=== PATIENT | male | born 1970 | race Caucasian/White ===

== ENCOUNTER 2016-07-09 07:44 | Outpatient (CLI) | payer OTHER | END 2016-07-09 07:45 | disposition home or self-care (01) | DX: I63.9 Cerebral infarction, unspecified (principal); I10 Essential (primary) hypertension; I48.91 Unspecified atrial fibrillation; I34.8 Other nonrheumatic mitral valve disorders ==

== ENCOUNTER 2016-07-11 07:37 | Outpatient (CLI) | payer OTHER | END 2016-07-11 07:38 | disposition home or self-care (01) | DX: T14.90 Injury, unspecified (principal); I10 Essential (primary) hypertension; E78.5 Hyperlipidemia, unspecified; Z12.5 Encounter for screening for malignant neoplasm of prostate ==

== ENCOUNTER 2016-08-13 12:57 | Outpatient (CLI) | payer OTHER | END 2016-08-13 12:58 | disposition home or self-care (01) | DX: I63.9 Cerebral infarction, unspecified (principal); I10 Essential (primary) hypertension; I48.91 Unspecified atrial fibrillation; I34.8 Other nonrheumatic mitral valve disorders ==

== ENCOUNTER 2016-08-15 11:55 | Outpatient (CLI) | payer OTHER | END 2016-08-15 11:56 | disposition home or self-care (01) | DX: I63.9 Cerebral infarction, unspecified (principal); I10 Essential (primary) hypertension; I48.91 Unspecified atrial fibrillation; I34.8 Other nonrheumatic mitral valve disorders ==

== ENCOUNTER 2016-09-02 07:08 | Outpatient (CLI) | payer OTHER | END 2016-09-02 07:09 | disposition home or self-care (01) | DX: I63.9 Cerebral infarction, unspecified (principal); I10 Essential (primary) hypertension; I48.91 Unspecified atrial fibrillation; I34.8 Other nonrheumatic mitral valve disorders ==

== ENCOUNTER 2016-09-22 07:14 | Outpatient (CLI) | payer OTHER | END 2016-09-22 07:15 | disposition home or self-care (01) | DX: I63.9 Cerebral infarction, unspecified (principal); I10 Essential (primary) hypertension; I48.91 Unspecified atrial fibrillation; I34.8 Other nonrheumatic mitral valve disorders ==

== ENCOUNTER 2016-10-31 15:45 | Outpatient (CLI) | payer OTHER | END 2016-10-31 15:46 | disposition home or self-care (01) | DX: I63.9 Cerebral infarction, unspecified (principal); I34.8 Other nonrheumatic mitral valve disorders; I10 Essential (primary) hypertension; I48.91 Unspecified atrial fibrillation ==

== ENCOUNTER 2016-11-20 07:44 | Outpatient (CLI) | payer OTHER | END 2016-11-20 07:45 | disposition home or self-care (01) | DX: I48.91 Unspecified atrial fibrillation (principal); I63.9 Cerebral infarction, unspecified; I10 Essential (primary) hypertension; I34.8 Other nonrheumatic mitral valve disorders ==

== ENCOUNTER 2016-12-19 14:04 | Outpatient (CLI) | payer OTHER | END 2016-12-19 14:05 | disposition home or self-care (01) | LOC: LAB.F 14:04 | PROVIDERS: ATTEND Internal Medicine | DX: I63.9 Cerebral infarction, unspecified (principal); I34.8 Other nonrheumatic mitral valve disorders | CPT/HCPCS: 85610 ==

== ENCOUNTER 2017-02-02 07:11 | Outpatient (CLI) | payer OTHER | END 2017-02-02 07:12 | disposition home or self-care (01) | LOC: LAB.F 07:11 | PROVIDERS: ATTEND Internal Medicine | DX: I63.9 Cerebral infarction, unspecified (principal); I48.91 Unspecified atrial fibrillation; I34.8 Other nonrheumatic mitral valve disorders; I10 Essential (primary) hypertension | CPT/HCPCS: 85610 ==

== ENCOUNTER 2017-02-27 07:54 | Outpatient (CLI) | payer OTHER | END 2017-02-27 07:55 | disposition home or self-care (01) | LOC: LAB.F 07:54 | PROVIDERS: ATTEND Internal Medicine | DX: I63.9 Cerebral infarction, unspecified (principal); I10 Essential (primary) hypertension; I48.91 Unspecified atrial fibrillation; I34.8 Other nonrheumatic mitral valve disorders | CPT/HCPCS: 85610 ==

== ENCOUNTER 2017-03-27 07:41 | Outpatient (CLI) | payer OTHER | END 2017-03-27 07:42 | disposition home or self-care (01) | LOC: LAB.F 07:41 | PROVIDERS: ATTEND Internal Medicine | DX: I63.9 Cerebral infarction, unspecified (principal); I10 Essential (primary) hypertension; I48.91 Unspecified atrial fibrillation; I34.8 Other nonrheumatic mitral valve disorders | CPT/HCPCS: 85610 ==

== ENCOUNTER 2017-05-05 07:26 | Outpatient (CLI) | payer OTHER | END 2017-05-05 07:27 | disposition home or self-care (01) | LOC: LAB.F 07:26 | PROVIDERS: ATTEND Internal Medicine | DX: I63.9 Cerebral infarction, unspecified (principal); I10 Essential (primary) hypertension; I48.91 Unspecified atrial fibrillation; I34.8 Other nonrheumatic mitral valve disorders | CPT/HCPCS: 85610 ==

== ENCOUNTER 2017-06-15 07:31 | Outpatient (CLI) | payer OTHER | END 2017-06-15 07:32 | disposition home or self-care (01) | LOC: LAB.F 07:31 | PROVIDERS: ATTEND Internal Medicine | DX: I63.9 Cerebral infarction, unspecified (principal); I10 Essential (primary) hypertension; I48.91 Unspecified atrial fibrillation; I34.8 Other nonrheumatic mitral valve disorders | CPT/HCPCS: 85610 ==

== ENCOUNTER 2017-07-31 08:00 | Outpatient (CLI) | payer OTHER | END 2017-07-31 08:01 | disposition home or self-care (01) | LOC: LAB.F 08:00 | PROVIDERS: ATTEND Internal Medicine Cardiovascular Disease | DX: I48.91 Unspecified atrial fibrillation (principal); I63.9 Cerebral infarction, unspecified; I10 Essential (primary) hypertension; I34.8 Other nonrheumatic mitral valve disorders | CPT/HCPCS: 85610 ==

== ENCOUNTER 2017-08-03 09:19 | Outpatient (CLI) | payer OTHER | END 2017-08-03 09:20 | disposition home or self-care (01) | LOC: LAB.F 09:19 | PROVIDERS: ATTEND Internal Medicine Cardiovascular Disease | DX: I63.9 Cerebral infarction, unspecified (principal); I10 Essential (primary) hypertension; I48.91 Unspecified atrial fibrillation; I34.8 Other nonrheumatic mitral valve disorders | CPT/HCPCS: 85610 ==

== ENCOUNTER 2017-08-07 08:31 | Outpatient (CLI) | payer OTHER | END 2017-08-07 08:32 | disposition home or self-care (01) | LOC: LAB.F 08:31 | PROVIDERS: ATTEND Internal Medicine Cardiovascular Disease | DX: I63.9 Cerebral infarction, unspecified (principal); I10 Essential (primary) hypertension; I48.91 Unspecified atrial fibrillation; I34.8 Other nonrheumatic mitral valve disorders | CPT/HCPCS: 85610 ==

== ENCOUNTER 2017-08-11 13:34 | Outpatient (CLI) | payer OTHER | END 2017-08-11 13:35 | disposition home or self-care (01) | LOC: LAB.F 13:34 | PROVIDERS: ATTEND Internal Medicine Cardiovascular Disease | DX: I10 Essential (primary) hypertension (principal); I48.91 Unspecified atrial fibrillation; I34.8 Other nonrheumatic mitral valve disorders | CPT/HCPCS: 85610 ==

== ENCOUNTER 2017-08-19 07:41 | Outpatient (CLI) | payer OTHER | END 2017-08-19 07:42 | disposition home or self-care (01) | LOC: LAB.F 07:41 | PROVIDERS: ATTEND Internal Medicine Cardiovascular Disease | DX: I63.9 Cerebral infarction, unspecified (principal); I10 Essential (primary) hypertension; I48.91 Unspecified atrial fibrillation; I34.8 Other nonrheumatic mitral valve disorders | CPT/HCPCS: 85610 ==

== ENCOUNTER 2017-09-18 08:07 | Outpatient (CLI) | payer OTHER | END 2017-09-18 08:08 | disposition home or self-care (01) | LOC: LAB.F 08:07 | PROVIDERS: ATTEND Internal Medicine Cardiovascular Disease | DX: I34.8 Other nonrheumatic mitral valve disorders (principal); I63.9 Cerebral infarction, unspecified; I10 Essential (primary) hypertension; I48.91 Unspecified atrial fibrillation | CPT/HCPCS: 85610 ==

== ENCOUNTER 2017-11-13 13:34 | Outpatient (CLI) | payer OTHER | END 2017-11-13 13:35 | disposition home or self-care (01) | LOC: LAB.F 13:34 | PROVIDERS: ATTEND Internal Medicine Cardiovascular Disease | DX: I63.9 Cerebral infarction, unspecified (principal); I10 Essential (primary) hypertension; I48.91 Unspecified atrial fibrillation; I34.8 Other nonrheumatic mitral valve disorders | CPT/HCPCS: 85610 ==

== ENCOUNTER 2017-12-28 16:10 | Outpatient (CLI) | END 2017-12-28 16:11 | disposition home or self-care (01) ==

== ENCOUNTER 2018-03-12 07:49 | Outpatient (CLI) | payer OTHER | END 2018-03-12 07:50 | disposition home or self-care (01) | LOC: LAB.F 07:49 | PROVIDERS: ATTEND Internal Medicine Cardiovascular Disease | DX: I63.9 Cerebral infarction, unspecified (principal); I10 Essential (primary) hypertension; I48.91 Unspecified atrial fibrillation; I34.8 Other nonrheumatic mitral valve disorders | CPT/HCPCS: 85610 ==

== ENCOUNTER 2018-04-26 08:00 | Outpatient (CLI) | payer OTHER | END 2018-04-26 08:01 | disposition home or self-care (01) | LOC: LAB.F 08:00 | PROVIDERS: ATTEND Internal Medicine Cardiovascular Disease | DX: I63.9 Cerebral infarction, unspecified (principal); I10 Essential (primary) hypertension; I48.91 Unspecified atrial fibrillation; I34.8 Other nonrheumatic mitral valve disorders | CPT/HCPCS: 85610 ==

== ENCOUNTER 2018-04-27 07:18 | Outpatient (CLI) | payer OTHER ==
[2018-04-27 10:45] LABS: BASOPHILS # (AUTO) 0.1 10^3/uL (0.0-0.1); EOSINOPHILS # (AUTO) 0.2 10^3/uL (0.0-0.7); EOSINOPHILS % (AUTO) 3.9 %; HGB - HEMOGLOBIN 15.6 g/dL (14.0-18.0); LYMPHOCYTES # (AUTO) 1.4 10^3/uL (1.5-3.5); LYMPHOCYTES % (AUTO) 28.1 %; MEAN CORPUSCULAR HEMOGLOBIN 29.7 pg (27.0-31.0); MEAN CORPUSCULAR HGB CONC 34.3 g/dL (32.0-36.0); MEAN CORPUSCULAR VOLUME 86.7 fL (80.0-94.0); MEAN PLATELET VOLUME 9.5 fL (7.4-11.4); MONOCYTES # (AUTO) 0.6 10^3/uL (0.0-1.0); NEUTROPHILS # (AUTO) 2.8 10^3/uL (1.5-6.6); PLT - PLATELET COUNT 128 10^3/uL (130-450); RED BLOOD COUNT 5.26 10^6/uL (4.70-6.10); RED CELL DISTRIBUTION WIDTH 12.4 % (12.0-15.0); WHITE BLOOD COUNT 5.1 x10^3/uL (4.8-10.8)
[2018-04-27 11:15] LABS: ALBUMIN 4.3 g/dL (3.2-5.5); ALBUMIN/GLOBULIN RATIO 1.4 (1.0-2.2); ALKALINE PHOSPHATASE 33 IU/L (42-121); ALT ALANINE AMINOTRANSFERASE 30 IU/L (10-60); AST ASPARTATE AMINOTRANSFERASE 29 IU/L (10-42); BILIRUBIN,TOTAL 1.6 mg/dL (0.2-1.0); BUN - BLOOD UREA NITROGEN 21 mg/dL (6-20); CALCIUM 9.2 mg/dL (8.5-10.3); CARBON DIOXIDE - CO2 30 mmol/L (21-32); CHLORIDE 101 mmol/L (101-111); CHOL/HDL RATIO 4.2 (<5.0); CHOLESTEROL 198 mg/dL; CREATININE 0.9 mg/dL (0.6-1.2); GFR - MDRD 90 (>89); GLUCOSE 112 mg/dL (70-100); HDL CHOLESTEROL 47 mg/dL; LDL CHOLESTEROL,CALCULATED 121 mg/dL; LDL/HDL RATIO 2.6 (<3.6); SODIUM 135 mmol/L (135-145); TOTAL PROTEIN 7.3 g/dL (6.7-8.2); VLDL CHOLESTEROL 30 mg/dL
== END 2018-04-27 07:19 | disposition home or self-care (01) ==
LOC: LAB.F 07:18
PROVIDERS: ATTEND Registered Nurse
DX: Z00.00 Encounter for general adult medical examination without abnormal findings (principal); I10 Essential (primary) hypertension; E78.5 Hyperlipidemia, unspecified; N20.0 Calculus of kidney; D69.6 Thrombocytopenia, unspecified
CPT/HCPCS: 36415; 80053; 80061; 81001; 83721; 84153; 85025; 87086

== ENCOUNTER 2018-06-23 07:52 | Outpatient (CLI) | payer OTHER | END 2018-06-23 07:53 | disposition home or self-care (01) | LOC: LAB.F 07:52 | PROVIDERS: ATTEND Internal Medicine Cardiovascular Disease | DX: I63.9 Cerebral infarction, unspecified (principal); I10 Essential (primary) hypertension; I48.91 Unspecified atrial fibrillation; I34.8 Other nonrheumatic mitral valve disorders | CPT/HCPCS: 85610 ==

== ENCOUNTER 2018-08-13 07:55 | Outpatient (CLI) | payer OTHER | END 2018-08-13 07:56 | disposition home or self-care (01) | LOC: LAB.F 07:55 | PROVIDERS: ATTEND Internal Medicine Cardiovascular Disease | DX: I63.9 Cerebral infarction, unspecified (principal); I10 Essential (primary) hypertension; I48.91 Unspecified atrial fibrillation; I34.8 Other nonrheumatic mitral valve disorders | CPT/HCPCS: 85610 ==

== ENCOUNTER 2018-09-15 07:53 | Outpatient (CLI) | payer OTHER | END 2018-09-15 07:54 | disposition home or self-care (01) | LOC: LAB.F 07:53 | PROVIDERS: ATTEND Internal Medicine Cardiovascular Disease | DX: I10 Essential (primary) hypertension (principal); I48.91 Unspecified atrial fibrillation; I34.8 Other nonrheumatic mitral valve disorders | CPT/HCPCS: 85610 ==

== ENCOUNTER 2018-11-24 07:31 | Outpatient (CLI) | payer OTHER | END 2018-11-24 07:32 | disposition home or self-care (01) | LOC: LAB.F 07:31 | PROVIDERS: ATTEND Internal Medicine Cardiovascular Disease | DX: I63.9 Cerebral infarction, unspecified (principal); I10 Essential (primary) hypertension; I48.91 Unspecified atrial fibrillation; I34.8 Other nonrheumatic mitral valve disorders | CPT/HCPCS: 85610 ==

== ENCOUNTER 2019-02-04 | Outpatient (CLI) | payer OTHER | END 2019-02-04 15:40 | disposition home or self-care (01) ==

== ENCOUNTER 2019-03-29 08:07 | Outpatient (CLI) | payer OTHER | END 2019-03-29 08:08 | disposition home or self-care (01) | LOC: LAB.S 08:07 | PROVIDERS: ATTEND Internal Medicine Cardiovascular Disease | DX: I63.9 Cerebral infarction, unspecified (principal); I10 Essential (primary) hypertension; I48.91 Unspecified atrial fibrillation; I34.8 Other nonrheumatic mitral valve disorders | CPT/HCPCS: 85610 ==

== ENCOUNTER 2019-05-10 08:52 | Outpatient (CLI) | payer OTHER | END 2019-05-10 08:53 | disposition home or self-care (01) | LOC: LAB.S 08:52 | PROVIDERS: ATTEND Internal Medicine Cardiovascular Disease | DX: I63.9 Cerebral infarction, unspecified (principal); I10 Essential (primary) hypertension; I48.91 Unspecified atrial fibrillation; I34.8 Other nonrheumatic mitral valve disorders | CPT/HCPCS: 85610 ==

== ENCOUNTER 2019-06-30 11:36 | Outpatient (CLI) | payer OTHER | END 2019-06-30 23:59 | disposition home or self-care (01) | LOC: LAB.S 11:36 | PROVIDERS: ATTEND Internal Medicine Cardiovascular Disease | DX: I63.9 Cerebral infarction, unspecified (principal); I10 Essential (primary) hypertension; I48.91 Unspecified atrial fibrillation; I34.8 Other nonrheumatic mitral valve disorders | CPT/HCPCS: 85610 ==

== ENCOUNTER 2019-08-16 08:19 | Outpatient (CLI) | payer OTHER | END 2019-08-16 08:20 | disposition home or self-care (01) | LOC: LAB.S 08:19 | PROVIDERS: ATTEND Internal Medicine Cardiovascular Disease | DX: I63.9 Cerebral infarction, unspecified (principal); I48.91 Unspecified atrial fibrillation; I34.8 Other nonrheumatic mitral valve disorders; I10 Essential (primary) hypertension | CPT/HCPCS: 85610 ==

== ENCOUNTER 2019-10-03 08:32 | Outpatient (CLI) | payer OTHER | END 2019-10-03 08:33 | disposition home or self-care (01) | LOC: LAB.S 08:32 | PROVIDERS: ATTEND Internal Medicine Cardiovascular Disease | DX: I63.9 Cerebral infarction, unspecified (principal); I10 Essential (primary) hypertension; I48.91 Unspecified atrial fibrillation; I34.8 Other nonrheumatic mitral valve disorders | CPT/HCPCS: 85610 ==

== ENCOUNTER 2019-11-24 10:03 | Outpatient (CLI) | payer OTHER | END 2019-11-24 10:04 | disposition home or self-care (01) | LOC: LAB 10:03 | PROVIDERS: ATTEND Internal Medicine Cardiovascular Disease | DX: I63.9 Cerebral infarction, unspecified (principal); I10 Essential (primary) hypertension; I48.91 Unspecified atrial fibrillation; I34.8 Other nonrheumatic mitral valve disorders | CPT/HCPCS: 85610 ==

== ENCOUNTER 2020-02-02 15:39 | Outpatient (CLI) | payer OTHER | END 2020-02-02 15:40 | disposition home or self-care (01) | LOC: LAB.S 15:39 | PROVIDERS: ATTEND Internal Medicine Cardiovascular Disease | DX: I63.9 Cerebral infarction, unspecified (principal); I10 Essential (primary) hypertension; I48.91 Unspecified atrial fibrillation; I34.8 Other nonrheumatic mitral valve disorders | CPT/HCPCS: 85610 ==

== ENCOUNTER 2020-03-22 08:36 | Outpatient (CLI) | payer OTHER | END 2020-03-22 08:37 | disposition home or self-care (01) | LOC: LAB.S 08:36 | PROVIDERS: ATTEND Internal Medicine Cardiovascular Disease | DX: I63.9 Cerebral infarction, unspecified (principal); I10 Essential (primary) hypertension; I48.91 Unspecified atrial fibrillation; I34.8 Other nonrheumatic mitral valve disorders | CPT/HCPCS: 85610 ==

== ENCOUNTER 2020-04-03 11:19 | Outpatient (CLI) | payer OTHER ==
[2020-04-03 14:58] LABS: BASOPHILS # (AUTO) 0.1 10^3/uL (0.0-0.1); BASOPHILS % (AUTO) 1.2 %; EOSINOPHILS # (AUTO) 0.2 10^3/uL (0.0-0.7); EOSINOPHILS % (AUTO) 4.5 %; HGB - HEMOGLOBIN 15.2 g/dL (14.0-18.0); LYMPHOCYTES # (AUTO) 1.3 10^3/uL (1.5-3.5); LYMPHOCYTES % (AUTO) 25.9 %; MEAN CORPUSCULAR HEMOGLOBIN 29.6 pg (27.0-31.0); MEAN CORPUSCULAR HGB CONC 33.5 g/dL (32.0-36.0); MEAN CORPUSCULAR VOLUME 88.3 fL (80.0-94.0); MEAN PLATELET VOLUME 11.2 fL (7.4-11.4); MONOCYTES # (AUTO) 0.4 10^3/uL (0.0-1.0); MONOCYTES % (AUTO) 8.8 %; NEUTROPHILS # (AUTO) 2.9 10^3/uL (1.5-6.6); NEUTROPHILS % (AUTO) 59.2 %; PLT - PLATELET COUNT 153 10^3/uL (130-450); RED BLOOD COUNT 5.14 10^6/uL (4.70-6.10); RED CELL DISTRIBUTION WIDTH 11.9 % (12.0-15.0); WHITE BLOOD COUNT 4.9 x10^3/uL (4.8-10.8)
[2020-04-03 15:31] LABS: PSA FREE 0.121 ng/mL (0.16-2.81); PSA TOTAL 0.476 ng/mL (0.000-2.000)
[2020-04-03 15:34] LABS: ALBUMIN 4.5 g/dL (3.2-5.5); ALBUMIN/GLOBULIN RATIO 1.7 (1.0-2.2); ALKALINE PHOSPHATASE 35 IU/L (42-121); ALT ALANINE AMINOTRANSFERASE 43 IU/L (10-60); AST ASPARTATE AMINOTRANSFERASE 36 IU/L (10-42); BILIRUBIN,TOTAL 1.6 mg/dL (0.2-1.0); BUN - BLOOD UREA NITROGEN 17 mg/dL (6-20); CALCIUM 9.6 mg/dL (8.5-10.3); CARBON DIOXIDE - CO2 26 mmol/L (21-32); CHLORIDE 101 mmol/L (101-111); CHOL/HDL RATIO 4.5 (<5.0); CHOLESTEROL 208 mg/dL; CREATININE 0.9 mg/dL (0.6-1.2); GLUCOSE 109 mg/dL (70-100); HDL CHOLESTEROL 46 mg/dL; LDL CHOLESTEROL,CALCULATED 123 mg/dL; LDL/HDL RATIO 2.7 (<3.6); SODIUM 136 mmol/L (135-145); TOTAL PROTEIN 7.1 g/dL (6.7-8.2); VLDL CHOLESTEROL 39 mg/dL
== END 2020-04-03 11:20 | disposition home or self-care (01) ==
LOC: LAB.S 11:19
PROVIDERS: ATTEND Internal Medicine Cardiovascular Disease
DX: Z00.00 Encounter for general adult medical examination without abnormal findings (principal); I10 Essential (primary) hypertension; E78.5 Hyperlipidemia, unspecified; I63.9 Cerebral infarction, unspecified; I48.91 Unspecified atrial fibrillation; I34.8 Other nonrheumatic mitral valve disorders; I38 Endocarditis, valve unspecified; Z79.01 Long term (current) use of anticoagulants; Z79.899 Other long term (current) drug therapy
CPT/HCPCS: 36415; 80053; 80061; 83721; 84153; 84154; 84443; 85025; 85610

== ENCOUNTER 2020-05-11 08:04 | Outpatient (CLI) | payer OTHER | END 2020-05-11 08:05 | disposition home or self-care (01) | LOC: LAB.S 08:04 | PROVIDERS: ATTEND Internal Medicine Cardiovascular Disease | DX: I63.9 Cerebral infarction, unspecified (principal); I10 Essential (primary) hypertension; I48.91 Unspecified atrial fibrillation; I34.8 Other nonrheumatic mitral valve disorders | CPT/HCPCS: 85610 ==

== ENCOUNTER 2020-05-23 09:07 | Outpatient (CLI) | payer OTHER | END 2020-05-23 09:08 | disposition home or self-care (01) | LOC: LAB.S 09:07 | PROVIDERS: ATTEND Internal Medicine Cardiovascular Disease | DX: I63.9 Cerebral infarction, unspecified (principal); I10 Essential (primary) hypertension; I48.91 Unspecified atrial fibrillation; I34.8 Other nonrheumatic mitral valve disorders | CPT/HCPCS: 85610 ==

== ENCOUNTER 2020-07-13 09:10 | Outpatient (CLI) | payer OTHER ==
--- OUTSIDE RECORDS SUMMARY | 2020-07-18 01:31 | EXTERNAL MEDICAL SUMMARY RPT | Continuity of Care Document ---
:1970 Demographics Phone Unavailable Preferred Language Unknown Marital Status Unknown Zoroastrianism Affiliation Unknown Race Unknown Ethnic Group Unknown Author Organization [facility] Address [address] [phone] Phone Care Team Providers Name Role Phone Kat Unavailable Unavailable Problems date description facility 2020-04-03 11:19 HYPERLIPIDEMIA, UNSPECIFIED [facility] 2020-04-03 11:19 ESSENTIAL (PRIMARY) HYPERTENSION 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 2020-04-03 11:19 ENCNTR FOR GENERAL ADULT MEDICAL 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 2020-05-23 09:07 ESSENTIAL (PRIMARY) HYPERTENSION 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 2.0 - 3.0 Mech anical Valve 2.5 - 3.5 test status date ordered by attending specimen john e null F 2020-05-23 [facility]. Nick Guajardo 2019-07 10:40:00 09:16:00 facility observation status value reference units lab abnor mal line notes range code [facility] F 3.4 0.8-1.2 [facility] Anticoag ulant Indicati on INR rang e Venous Thrombos is, P.E. 2.0 - 3.0 Mech anical Valve 2.5 - 3.5 test status date ordered by attending specimen john e null F 2020-07-13 [id number].[email or web address] Debi Esteban 8 09:20:00 09:20:00 facility observation status value reference units lab abnor mal line notes range code [facility] F 3.3 0.8-1.2 [facility] Anticoag ulant Indicati on INR rang e Venous Thrombos is, P.E. 2.0 - 3.0 Mech anical Valve 2.5 - 3.5 Social History date description facility [id number]
== END 2020-07-13 09:11 | disposition home or self-care (01) ==
LOC: LAB.S 09:10
PROVIDERS: ATTEND Registered Nurse
DX: I63.9 Cerebral infarction, unspecified (principal); I34.8 Other nonrheumatic mitral valve disorders; I10 Essential (primary) hypertension; I48.91 Unspecified atrial fibrillation
CPT/HCPCS: 85610

== ENCOUNTER 2020-08-24 08:31 | Outpatient (CLI) | payer OTHER | END 2020-08-24 08:32 | disposition home or self-care (01) | LOC: LAB.S 08:31 | PROVIDERS: ATTEND Internal Medicine Cardiovascular Disease | DX: I63.9 Cerebral infarction, unspecified (principal); I10 Essential (primary) hypertension; I48.91 Unspecified atrial fibrillation; I34.8 Other nonrheumatic mitral valve disorders | CPT/HCPCS: 85610 ==

== ENCOUNTER 2020-10-16 16:35 | Outpatient (CLI) | payer OTHER | END 2020-10-16 16:36 | disposition home or self-care (01) | LOC: LAB.S 16:35 | PROVIDERS: ATTEND Internal Medicine Cardiovascular Disease | DX: I63.9 Cerebral infarction, unspecified (principal); I10 Essential (primary) hypertension; I48.91 Unspecified atrial fibrillation; I34.8 Other nonrheumatic mitral valve disorders | CPT/HCPCS: 85610 ==

== ENCOUNTER 2020-10-18 15:33 | Outpatient (CLI) | payer OTHER | END 2020-10-18 15:34 | disposition home or self-care (01) | LOC: LAB.S 15:33 | PROVIDERS: ATTEND Internal Medicine Cardiovascular Disease | DX: I63.9 Cerebral infarction, unspecified (principal); I10 Essential (primary) hypertension; I48.91 Unspecified atrial fibrillation; I34.8 Other nonrheumatic mitral valve disorders | CPT/HCPCS: 85610 ==

== ENCOUNTER 2020-10-23 18:16 | Outpatient (CLI) | payer OTHER | END 2020-10-23 18:17 | disposition home or self-care (01) | LOC: LAB.S 18:16 | PROVIDERS: ATTEND Internal Medicine Cardiovascular Disease | DX: Z79.01 Long term (current) use of anticoagulants (principal) | CPT/HCPCS: 85610 ==

== ENCOUNTER 2020-10-29 16:35 | Outpatient (CLI) | payer OTHER | END 2020-10-29 16:36 | disposition home or self-care (01) | LOC: LAB.S 16:35 | PROVIDERS: ATTEND Internal Medicine Cardiovascular Disease | DX: Z79.01 Long term (current) use of anticoagulants (principal) | CPT/HCPCS: 85610 ==

== ENCOUNTER 2020-11-27 07:27 | Outpatient (CLI) | payer OTHER | END 2020-11-27 07:28 | disposition home or self-care (01) | LOC: LAB.S 07:27 | PROVIDERS: ATTEND Internal Medicine Cardiovascular Disease | DX: Z79.01 Long term (current) use of anticoagulants (principal) | CPT/HCPCS: 36416; 85610 ==

== ENCOUNTER 2020-11-30 07:56 | Outpatient (CLI) | payer OTHER | END 2020-11-30 07:57 | disposition home or self-care (01) | LOC: LAB.S 07:56 | PROVIDERS: ATTEND Internal Medicine Cardiovascular Disease | DX: Z79.01 Long term (current) use of anticoagulants (principal) | CPT/HCPCS: 36416; 85610 ==

== ENCOUNTER 2020-12-06 07:47 | Outpatient (CLI) | payer OTHER | END 2020-12-06 07:48 | disposition home or self-care (01) | LOC: LAB.S 07:47 | PROVIDERS: ATTEND Internal Medicine Cardiovascular Disease | DX: Z79.01 Long term (current) use of anticoagulants (principal) | CPT/HCPCS: 36416; 85610 ==

== ENCOUNTER 2021-01-22 07:22 | Outpatient (CLI) | payer OTHER | END 2021-01-22 07:23 | disposition home or self-care (01) | LOC: LAB.S 07:22 | PROVIDERS: ATTEND Internal Medicine Cardiovascular Disease | DX: Z79.01 Long term (current) use of anticoagulants (principal) | CPT/HCPCS: 36416; 85610 ==

== ENCOUNTER 2021-02-12 07:37 | Outpatient (CLI) | payer OTHER | END 2021-02-12 07:38 | disposition home or self-care (01) | LOC: LAB.S 07:37 | PROVIDERS: ATTEND Internal Medicine Cardiovascular Disease | DX: Z79.01 Long term (current) use of anticoagulants (principal) | CPT/HCPCS: 36416; 85610 ==

== ENCOUNTER 2021-03-04 13:07 | Outpatient (CLI) | payer OTHER ==
[2021-03-04 20:08] LABS: ALBUMIN 4.5 g/dL (3.2-5.5); ALBUMIN/GLOBULIN RATIO 1.5 (1.0-2.2); BILIRUBIN,TOTAL 1.3 mg/dL (0.2-1.0); CALCIUM 9.7 mg/dL (8.5-10.3); CREATININE 0.9 mg/dL (0.6-1.2); POTASSIUM 4.1 mmol/L (3.5-5.0); TOTAL PROTEIN 7.5 g/dL (6.7-8.2)
[2021-03-04 20:14] LABS: BASOPHILS # (AUTO) 0.1 10^3/uL (0.0-0.1); EOSINOPHILS # (AUTO) 0.1 10^3/uL (0.0-0.7); EOSINOPHILS % (AUTO) 1.4 %; HCT - HEMATOCRIT 51.5 % (42.0-52.0); HGB - HEMOGLOBIN 17.3 g/dL (14.0-18.0); LYMPHOCYTES # (AUTO) 1.5 10^3/uL (1.5-3.5); LYMPHOCYTES % (AUTO) 21.2 %; MEAN CORPUSCULAR HEMOGLOBIN 29.8 pg (27.0-31.0); MEAN CORPUSCULAR HGB CONC 33.6 g/dL (32.0-36.0); MEAN CORPUSCULAR VOLUME 88.6 fL (80.0-94.0); MEAN PLATELET VOLUME 11.1 fL (7.4-11.4); MONOCYTES # (AUTO) 0.7 10^3/uL (0.0-1.0); MONOCYTES % (AUTO) 9.5 %; NEUTROPHILS # (AUTO) 4.8 10^3/uL (1.5-6.6); NEUTROPHILS % (AUTO) 66.6 %; PLT - PLATELET COUNT 173 10^3/uL (130-450); RED BLOOD COUNT 5.81 10^6/uL (4.70-6.10); WHITE BLOOD COUNT 7.2 x10^3/uL (4.8-10.8)
[2021-03-04 20:21] LABS: THYROID STIMULATING HORMONE 2.83 uIU/mL (0.34-5.60)
== END 2021-03-04 13:08 | disposition home or self-care (01) ==
LOC: LAB.S 13:07
PROVIDERS: ATTEND Internal Medicine Cardiovascular Disease
DX: Z79.01 Long term (current) use of anticoagulants (principal); I10 Essential (primary) hypertension; E78.5 Hyperlipidemia, unspecified; R73.01 Impaired fasting glucose; Z95.2 Presence of prosthetic heart valve
CPT/HCPCS: 36415; 36416; 80053; 84443; 85025; 85610

== ENCOUNTER 2021-03-15 08:10 | Outpatient (CLI) | payer OTHER | END 2021-03-15 08:11 | disposition home or self-care (01) | LOC: LAB.S 08:10 | PROVIDERS: ATTEND Internal Medicine Cardiovascular Disease | DX: Z79.01 Long term (current) use of anticoagulants (principal) | CPT/HCPCS: 36416; 85610 ==

== ENCOUNTER 2021-03-20 09:02 | Outpatient (CLI) | payer OTHER | END 2021-03-20 09:03 | disposition home or self-care (01) | LOC: LAB.S 09:02 | PROVIDERS: ATTEND Internal Medicine Cardiovascular Disease | DX: Z79.01 Long term (current) use of anticoagulants (principal) | CPT/HCPCS: 36416; 85610 ==

== ENCOUNTER 2021-04-29 09:10 | Outpatient (CLI) | payer OTHER | END 2021-04-29 09:11 | disposition home or self-care (01) | LOC: LAB.S 09:10 | PROVIDERS: ATTEND Internal Medicine Cardiovascular Disease | DX: Z79.01 Long term (current) use of anticoagulants (principal) | CPT/HCPCS: 36415; 36416; 85610 ==

== ENCOUNTER 2021-05-06 10:34 | Outpatient (CLI) | payer OTHER | END 2021-05-06 10:35 | disposition home or self-care (01) | LOC: LAB.S 10:34 | PROVIDERS: ATTEND Internal Medicine Cardiovascular Disease | DX: Z79.01 Long term (current) use of anticoagulants (principal) | CPT/HCPCS: 36416; 85610 ==

== ENCOUNTER 2021-05-16 08:48 | Outpatient (CLI) | payer OTHER | END 2021-05-16 08:49 | disposition home or self-care (01) | LOC: RT 08:48 | PROVIDERS: ATTEND Internal Medicine Cardiovascular Disease | DX: I48.91 Unspecified atrial fibrillation (principal) | CPT/HCPCS: 93005 ==

== ENCOUNTER 2021-05-29 08:50 | Outpatient (CLI) | payer OTHER | END 2021-05-29 08:51 | disposition home or self-care (01) | LOC: LAB.S 08:50 | PROVIDERS: ATTEND Internal Medicine Cardiovascular Disease | DX: Z79.01 Long term (current) use of anticoagulants (principal) | CPT/HCPCS: 36416; 85610 ==

== ENCOUNTER 2021-06-06 07:37 | Outpatient (CLI) | payer OTHER | END 2021-06-06 07:38 | disposition home or self-care (01) | LOC: LAB.S 07:37 | PROVIDERS: ATTEND Internal Medicine Cardiovascular Disease | DX: Z79.01 Long term (current) use of anticoagulants (principal) | CPT/HCPCS: 36416; 85610 ==

== ENCOUNTER 2021-06-21 08:32 | Outpatient (CLI) | payer OTHER | END 2021-06-21 08:33 | disposition home or self-care (01) | LOC: LAB.S 08:32 | PROVIDERS: ATTEND Internal Medicine Cardiovascular Disease | DX: Z79.01 Long term (current) use of anticoagulants (principal) | CPT/HCPCS: 36416; 85610 ==

== ENCOUNTER 2021-07-11 08:27 | Outpatient (CLI) | payer OTHER | END 2021-07-11 08:28 | disposition home or self-care (01) | LOC: LAB.S 08:27 | PROVIDERS: ATTEND Internal Medicine Cardiovascular Disease | DX: Z79.01 Long term (current) use of anticoagulants (principal) | CPT/HCPCS: 36416; 85610 ==

== ENCOUNTER 2021-08-09 08:39 | Outpatient (CLI) | payer OTHER | END 2021-08-09 08:40 | disposition home or self-care (01) | LOC: LAB.S 08:39 | PROVIDERS: ATTEND Internal Medicine Cardiovascular Disease | DX: Z79.01 Long term (current) use of anticoagulants (principal) | CPT/HCPCS: 36416; 85610 ==

== ENCOUNTER 2021-08-26 12:58 | Outpatient (CLI) | payer OTHER | END 2021-08-26 12:59 | disposition home or self-care (01) | LOC: LAB.S 12:58 | PROVIDERS: ATTEND Internal Medicine Cardiovascular Disease | DX: Z79.01 Long term (current) use of anticoagulants (principal) | CPT/HCPCS: 36416; 85610 ==

== ENCOUNTER 2021-10-02 07:33 | Outpatient (CLI) | payer OTHER | END 2021-10-02 07:34 | disposition home or self-care (01) | LOC: LAB.S 07:33 | PROVIDERS: ATTEND Internal Medicine Cardiovascular Disease | DX: Z79.01 Long term (current) use of anticoagulants (principal) | CPT/HCPCS: 36416; 85610 ==

== ENCOUNTER 2021-10-04 07:28 | Outpatient (CLI) | payer OTHER | END 2021-10-04 07:29 | disposition home or self-care (01) | LOC: LAB.S 07:28 | PROVIDERS: ATTEND Internal Medicine Cardiovascular Disease | DX: Z79.01 Long term (current) use of anticoagulants (principal) | CPT/HCPCS: 36416; 85610 ==

== ENCOUNTER 2021-10-11 07:37 | Outpatient (CLI) | payer OTHER | END 2021-10-11 07:38 | disposition home or self-care (01) | LOC: LAB.S 07:37 | PROVIDERS: ATTEND Internal Medicine Cardiovascular Disease | DX: Z79.01 Long term (current) use of anticoagulants (principal) | CPT/HCPCS: 36416; 85610 ==

== ENCOUNTER 2021-10-31 07:27 | Outpatient (CLI) | payer OTHER | END 2021-10-31 07:28 | disposition home or self-care (01) | LOC: LAB.S 07:27 | PROVIDERS: ATTEND Internal Medicine Cardiovascular Disease | DX: Z79.01 Long term (current) use of anticoagulants (principal) | CPT/HCPCS: 36416; 85610 ==

== ENCOUNTER 2021-11-29 07:44 | Outpatient (CLI) | payer OTHER | END 2021-11-29 07:45 | disposition home or self-care (01) | LOC: LAB.S 07:44 | PROVIDERS: ATTEND Internal Medicine Cardiovascular Disease | DX: Z79.01 Long term (current) use of anticoagulants (principal) | CPT/HCPCS: 36416; 85610 ==

== ENCOUNTER 2021-12-03 13:08 | Outpatient (CLI) | payer OTHER | END 2021-12-03 13:09 | disposition short-term general hospital (02) | LOC: EMS 13:08 | DX: R00.2 Palpitations (principal); R06.02 Shortness of breath; I48.91 Unspecified atrial fibrillation | CPT/HCPCS: A0425; A0427 ==

== ENCOUNTER 2021-12-18 15:23 | Outpatient (CLI) | payer OTHER | END 2021-12-18 15:24 | disposition home or self-care (01) | LOC: LAB.S 15:23 | PROVIDERS: ATTEND Internal Medicine Cardiovascular Disease | DX: Z79.01 Long term (current) use of anticoagulants (principal) | CPT/HCPCS: 36416; 85610 ==

== ENCOUNTER 2021-12-20 07:28 | Outpatient (CLI) | payer OTHER | END 2021-12-20 07:29 | disposition home or self-care (01) | LOC: LAB.S 07:28 | PROVIDERS: ATTEND Internal Medicine Cardiovascular Disease | DX: Z79.01 Long term (current) use of anticoagulants (principal) | CPT/HCPCS: 36416; 85610 ==

== ENCOUNTER 2021-12-23 10:33 | Outpatient (CLI) | payer OTHER | END 2021-12-23 10:34 | disposition home or self-care (01) | LOC: LAB.S 10:33 | PROVIDERS: ATTEND Internal Medicine Cardiovascular Disease | DX: Z79.01 Long term (current) use of anticoagulants (principal) | CPT/HCPCS: 36416; 85610 ==

== ENCOUNTER 2021-12-30 09:06 | Outpatient (CLI) | payer OTHER | END 2021-12-30 09:07 | disposition home or self-care (01) | LOC: LAB.S 09:06 | PROVIDERS: ATTEND Internal Medicine Cardiovascular Disease | DX: Z79.01 Long term (current) use of anticoagulants (principal) | CPT/HCPCS: 36416; 85610 ==

== ENCOUNTER 2022-01-01 11:38 | Outpatient (CLI) | payer OTHER | END 2022-01-01 11:39 | disposition home or self-care (01) | LOC: LAB.S 11:38 | PROVIDERS: ATTEND Internal Medicine Cardiovascular Disease | DX: Z79.01 Long term (current) use of anticoagulants (principal) | CPT/HCPCS: 36416; 85610 ==

== ENCOUNTER 2022-01-02 11:22 | Outpatient (CLI) | payer OTHER | END 2022-01-02 11:23 | disposition home or self-care (01) | LOC: LAB.S 11:22 | PROVIDERS: ATTEND Internal Medicine Cardiovascular Disease | DX: Z79.01 Long term (current) use of anticoagulants (principal) | CPT/HCPCS: 36416; 85610 ==

== ENCOUNTER 2022-01-27 07:26 | Outpatient (CLI) | payer OTHER | END 2022-01-27 07:27 | disposition home or self-care (01) | LOC: LAB.S 07:26 | PROVIDERS: ATTEND Internal Medicine Cardiovascular Disease | DX: Z79.01 Long term (current) use of anticoagulants (principal) | CPT/HCPCS: 36416; 85610 ==

== ENCOUNTER 2022-03-05 07:02 | Outpatient (CLI) | payer OTHER | END 2022-03-05 07:03 | disposition home or self-care (01) | LOC: LAB.S 07:02 | PROVIDERS: ATTEND Internal Medicine Cardiovascular Disease | DX: Z79.01 Long term (current) use of anticoagulants (principal) | CPT/HCPCS: 36416; 85610 ==

== ENCOUNTER 2022-03-20 07:24 | Outpatient (CLI) | payer OTHER | END 2022-03-20 07:25 | disposition home or self-care (01) | LOC: LAB.S 07:24 | PROVIDERS: ATTEND Internal Medicine Cardiovascular Disease | DX: Z79.01 Long term (current) use of anticoagulants (principal) | CPT/HCPCS: 36416; 85610 ==

== ENCOUNTER 2022-04-16 07:23 | Outpatient (CLI) | payer OTHER | END 2022-04-16 07:24 | disposition home or self-care (01) | LOC: LAB.S 07:23 | PROVIDERS: ATTEND Internal Medicine Cardiovascular Disease | DX: Z79.01 Long term (current) use of anticoagulants (principal) | CPT/HCPCS: 36416; 85610 ==

== ENCOUNTER 2022-04-29 07:03 | Outpatient (CLI) | payer OTHER | END 2022-04-29 07:04 | disposition home or self-care (01) | LOC: LAB.S 07:03 | PROVIDERS: ATTEND Internal Medicine Cardiovascular Disease | DX: Z79.01 Long term (current) use of anticoagulants (principal) | CPT/HCPCS: 36416; 85610 ==

== ENCOUNTER 2022-05-09 08:20 | Outpatient (CLI) | payer OTHER | END 2022-05-09 08:21 | disposition home or self-care (01) | LOC: LAB.S 08:20 | PROVIDERS: ATTEND Internal Medicine Cardiovascular Disease | DX: Z79.01 Long term (current) use of anticoagulants (principal) | CPT/HCPCS: 36416; 85610 ==

== ENCOUNTER 2022-05-27 07:09 | Outpatient (CLI) | payer OTHER | END 2022-05-27 07:10 | disposition home or self-care (01) | LOC: LAB.S 07:09 | PROVIDERS: ATTEND Internal Medicine Cardiovascular Disease | DX: Z79.01 Long term (current) use of anticoagulants (principal) | CPT/HCPCS: 36416; 85610 ==

== ENCOUNTER 2022-06-17 07:47 | Outpatient (CLI) | payer OTHER | END 2022-06-17 07:48 | disposition home or self-care (01) | LOC: LAB.S 07:47 | PROVIDERS: ATTEND Internal Medicine Cardiovascular Disease | DX: Z79.01 Long term (current) use of anticoagulants (principal) | CPT/HCPCS: 36416; 85610 ==

== ENCOUNTER 2022-07-01 07:19 | Outpatient (CLI) | payer OTHER | END 2022-07-01 07:20 | disposition home or self-care (01) | LOC: LAB.S 07:19 | PROVIDERS: ATTEND Internal Medicine Cardiovascular Disease | DX: Z79.01 Long term (current) use of anticoagulants (principal) | CPT/HCPCS: 36416; 85610 ==

== ENCOUNTER 2022-07-07 10:30 | Outpatient (CLI) | payer OTHER | END 2022-07-07 10:31 | disposition home or self-care (01) | LOC: LAB.S 10:30 | PROVIDERS: ATTEND Internal Medicine Cardiovascular Disease | DX: Z79.01 Long term (current) use of anticoagulants (principal) | CPT/HCPCS: 36416; 85610 ==

== ENCOUNTER 2022-07-22 12:39 | Outpatient (CLI) | payer OTHER | END 2022-07-22 12:40 | disposition home or self-care (01) | LOC: LAB.S 12:39 | PROVIDERS: ATTEND Internal Medicine Cardiovascular Disease | DX: Z79.01 Long term (current) use of anticoagulants (principal) | CPT/HCPCS: 36416; 85610 ==

== ENCOUNTER 2022-08-05 07:14 | Outpatient (CLI) | payer OTHER | END 2022-08-05 07:15 | disposition home or self-care (01) | LOC: LAB.S 07:14 | PROVIDERS: ATTEND Internal Medicine Cardiovascular Disease | DX: Z79.01 Long term (current) use of anticoagulants (principal) | CPT/HCPCS: 36416; 85610 ==

== ENCOUNTER 2022-08-12 08:01 | Outpatient (CLI) | payer OTHER | END 2022-08-12 08:02 | disposition home or self-care (01) | LOC: LAB.S 08:01 | PROVIDERS: ATTEND Internal Medicine Cardiovascular Disease | DX: Z79.01 Long term (current) use of anticoagulants (principal) | CPT/HCPCS: 36416; 85610 ==

== ENCOUNTER 2022-09-01 08:10 | Outpatient (CLI) | payer OTHER | END 2022-09-01 08:11 | disposition home or self-care (01) | LOC: LAB.S 08:10 | PROVIDERS: ATTEND Internal Medicine Cardiovascular Disease | DX: Z79.01 Long term (current) use of anticoagulants (principal) | CPT/HCPCS: 36416; 85610 ==

== ENCOUNTER 2022-09-04 07:46 | Outpatient (CLI) | payer OTHER ==
[2022-09-04 15:23] LABS: INR 2.9 (0.8-1.2); PT - PROTHROMBIN TIME 30.3 secs (9.9-12.6)
== END 2022-09-04 07:47 | disposition home or self-care (01) ==
LOC: LAB.S 07:46
PROVIDERS: ATTEND Internal Medicine Cardiovascular Disease
DX: Z79.01 Long term (current) use of anticoagulants (principal)
CPT/HCPCS: 36415; 36416; 85610

== ENCOUNTER 2022-09-08 10:26 | Outpatient (CLI) | payer OTHER | END 2022-09-08 10:27 | disposition home or self-care (01) | LOC: LAB.S 10:26 | PROVIDERS: ATTEND Internal Medicine Cardiovascular Disease | DX: Z79.01 Long term (current) use of anticoagulants (principal) | CPT/HCPCS: 36416; 85610 ==

== ENCOUNTER 2022-09-16 08:06 | Outpatient (CLI) | payer OTHER | END 2022-09-16 08:07 | disposition home or self-care (01) | LOC: LAB.S 08:06 | PROVIDERS: ATTEND Internal Medicine Cardiovascular Disease | DX: Z79.01 Long term (current) use of anticoagulants (principal) | CPT/HCPCS: 36416; 85610 ==

== ENCOUNTER 2022-09-24 07:02 | Outpatient (CLI) | payer OTHER | END 2022-09-24 07:03 | disposition home or self-care (01) | LOC: LAB.S 07:02 | PROVIDERS: ATTEND Internal Medicine Cardiovascular Disease | DX: Z79.01 Long term (current) use of anticoagulants (principal) | CPT/HCPCS: 36416; 85610 ==

== ENCOUNTER 2022-09-30 07:16 | Outpatient (CLI) | payer OTHER | END 2022-09-30 07:17 | disposition home or self-care (01) | LOC: LAB.S 07:16 | PROVIDERS: ATTEND Internal Medicine Cardiovascular Disease | DX: Z79.01 Long term (current) use of anticoagulants (principal) | CPT/HCPCS: 36416; 85610 ==

== ENCOUNTER 2022-10-14 07:58 | Outpatient (CLI) | payer OTHER | END 2022-10-14 07:59 | disposition home or self-care (01) | LOC: LAB.S 07:58 | PROVIDERS: ATTEND Internal Medicine Cardiovascular Disease | DX: Z79.01 Long term (current) use of anticoagulants (principal) | CPT/HCPCS: 36416; 85610 ==

== ENCOUNTER 2022-10-28 07:05 | Outpatient (CLI) | payer OTHER | END 2022-10-28 07:06 | disposition home or self-care (01) | LOC: LAB.S 07:05 | PROVIDERS: ATTEND Internal Medicine Cardiovascular Disease | DX: Z79.01 Long term (current) use of anticoagulants (principal) | CPT/HCPCS: 36416; 85610 ==

== ENCOUNTER 2022-11-11 07:28 | Outpatient (CLI) | payer OTHER | END 2022-11-11 07:29 | disposition home or self-care (01) | LOC: LAB.S 07:28 | PROVIDERS: ATTEND Internal Medicine Cardiovascular Disease | DX: Z79.01 Long term (current) use of anticoagulants (principal) | CPT/HCPCS: 36416; 85610 ==

== ENCOUNTER 2022-11-24 07:23 | Outpatient (CLI) | payer OTHER | END 2022-11-24 07:24 | disposition home or self-care (01) | LOC: LAB.S 07:23 | PROVIDERS: ATTEND Internal Medicine Cardiovascular Disease | DX: Z79.01 Long term (current) use of anticoagulants (principal) | CPT/HCPCS: 36416; 85610 ==

== ENCOUNTER 2022-12-04 13:54 | Outpatient (CLI) | payer OTHER | END 2022-12-04 13:55 | disposition home or self-care (01) | LOC: LAB.S 13:54 | PROVIDERS: ATTEND Registered Nurse | DX: Z79.01 Long term (current) use of anticoagulants (principal) | CPT/HCPCS: 36416; 85610 ==

== ENCOUNTER 2022-12-23 08:03 | Outpatient (CLI) | payer OTHER | END 2022-12-23 08:04 | disposition home or self-care (01) | LOC: LAB.S 08:03 | PROVIDERS: ATTEND Internal Medicine Cardiovascular Disease | DX: Z79.01 Long term (current) use of anticoagulants (principal) | CPT/HCPCS: 36416; 85610 ==

== ENCOUNTER 2023-01-19 07:25 | Outpatient (CLI) | payer OTHER ==
[2023-01-19 15:08] LABS: BASOPHILS # (AUTO) 0.1 10^3/uL (0.0-0.1); BASOPHILS % (AUTO) 1.2 %; EOSINOPHILS # (AUTO) 0.3 10^3/uL (0.0-0.7); EOSINOPHILS % (AUTO) 6.7 %; HCT - HEMATOCRIT 46.5 % (42.0-52.0); HGB - HEMOGLOBIN 15.5 g/dL (14.0-18.0); LYMPHOCYTES # (AUTO) 1.5 10^3/uL (1.5-3.5); LYMPHOCYTES % (AUTO) 33.9 %; MEAN CORPUSCULAR HEMOGLOBIN 28.8 pg (27.0-31.0); MEAN CORPUSCULAR HGB CONC 33.3 g/dL (32.0-36.0); MEAN CORPUSCULAR VOLUME 86.4 fL (80.0-94.0); MEAN PLATELET VOLUME 11.1 fL (7.4-11.4); MONOCYTES # (AUTO) 0.5 10^3/uL (0.0-1.0); MONOCYTES % (AUTO) 11.5 %; NEUTROPHILS % (AUTO) 46.2 %; PLT - PLATELET COUNT 141 10^3/uL (130-450); RED BLOOD COUNT 5.38 10^6/uL (4.70-6.10); RED CELL DISTRIBUTION WIDTH 12.8 % (12.0-15.0); WHITE BLOOD COUNT 4.3 x10^3/uL (4.8-10.8)
[2023-01-19 16:29] LABS: THYROID STIMULATING HORMONE 1.68 uIU/mL (0.34-5.60)
[2023-01-19 17:19] LABS: ALBUMIN 4.5 g/dL (3.2-5.5); ALBUMIN/GLOBULIN RATIO 1.8 (1.0-2.2); ALKALINE PHOSPHATASE 32 IU/L (42-121); ALT ALANINE AMINOTRANSFERASE 24 IU/L (10-60); AST ASPARTATE AMINOTRANSFERASE 24 IU/L (10-42); BILIRUBIN,TOTAL 1.2 mg/dL (0.2-1.0); BUN - BLOOD UREA NITROGEN 24 mg/dL (6-20); CALCIUM 9.2 mg/dL (8.5-10.3); CARBON DIOXIDE - CO2 30 mmol/L (21-32); CHLORIDE 106 mmol/L (101-111); CHOL/HDL RATIO 3.8 (<5.0); CHOLESTEROL 173 mg/dL; GFR - MDRD 78 (>89); GLUCOSE 113 mg/dL (70-100); HDL CHOLESTEROL 45 mg/dL; LDL CHOLESTEROL,CALCULATED 106 mg/dL; LDL/HDL RATIO 2.4 (<3.6); POTASSIUM 4.7 mmol/L (3.5-5.0); SODIUM 140 mmol/L (135-145); TRIGLYCERIDES 109 mg/dL; VLDL CHOLESTEROL 22 mg/dL
[2023-01-20 03:09] LABS: HCV AB Non Reactive (Non Reactive)
== END 2023-01-19 07:26 | disposition home or self-care (01) ==
LOC: LAB.S 07:25
PROVIDERS: ATTEND Registered Nurse
DX: Z01.84 Encounter for antibody response examination (principal); Z79.01 Long term (current) use of anticoagulants; D68.69 Other thrombophilia; Z95.2 Presence of prosthetic heart valve; Z12.5 Encounter for screening for malignant neoplasm of prostate; Z13.220 Encounter for screening for lipoid disorders; Z13.29 Encounter for screening for other suspected endocrine disorder; Z79.899 Other long term (current) drug therapy
CPT/HCPCS: 36415; 80053; 80061; 83721; 84153; 84443; 85025; 85610; 86803

== ENCOUNTER 2023-02-17 07:31 | Outpatient (CLI) | payer OTHER | END 2023-02-17 07:32 | disposition home or self-care (01) | LOC: LAB.S 07:31 | PROVIDERS: ATTEND Internal Medicine Cardiovascular Disease | DX: Z79.01 Long term (current) use of anticoagulants (principal) | CPT/HCPCS: 36416; 85610 ==

== ENCOUNTER 2023-04-14 07:56 | Outpatient (CLI) | payer OTHER | END 2023-04-14 07:57 | disposition home or self-care (01) | LOC: LAB.S 07:56 | PROVIDERS: ATTEND Internal Medicine Cardiovascular Disease | DX: Z79.01 Long term (current) use of anticoagulants (principal) | CPT/HCPCS: 36416; 85610 ==

== ENCOUNTER 2023-05-11 07:41 | Outpatient (CLI) | payer OTHER | END 2023-05-11 07:42 | disposition home or self-care (01) | LOC: LAB.S 07:41 | PROVIDERS: ATTEND Internal Medicine Cardiovascular Disease | DX: Z79.01 Long term (current) use of anticoagulants (principal) | CPT/HCPCS: 36416; 85610 ==

== ENCOUNTER 2023-06-16 07:28 | Outpatient (CLI) | payer OTHER | END 2023-06-16 07:29 | disposition home or self-care (01) | LOC: LAB.S 07:28 | PROVIDERS: ATTEND Internal Medicine Cardiovascular Disease | DX: Z51.81 Encounter for therapeutic drug level monitoring (principal); Z79.01 Long term (current) use of anticoagulants | CPT/HCPCS: 36416; 85610 ==

== ENCOUNTER 2023-07-20 08:45 | Outpatient (CLI) | payer OTHER | END 2023-07-20 08:46 | disposition home or self-care (01) | LOC: LAB.S 08:45 | PROVIDERS: ATTEND Internal Medicine Cardiovascular Disease | DX: Z51.81 Encounter for therapeutic drug level monitoring (principal); Z79.01 Long term (current) use of anticoagulants | CPT/HCPCS: 36416; 85610 ==

== ENCOUNTER 2023-08-25 08:00 | Outpatient (CLI) | payer OTHER | END 2023-08-25 08:01 | disposition home or self-care (01) | LOC: LAB.S 08:00 | PROVIDERS: ATTEND Internal Medicine Cardiovascular Disease | DX: Z79.01 Long term (current) use of anticoagulants (principal) | CPT/HCPCS: 36416; 85610 ==

== ENCOUNTER 2023-09-15 07:47 | Outpatient (CLI) | payer OTHER | END 2023-09-15 07:48 | disposition home or self-care (01) | LOC: LAB.S 07:47 | PROVIDERS: ATTEND Internal Medicine Cardiovascular Disease | DX: Z51.81 Encounter for therapeutic drug level monitoring (principal); Z79.01 Long term (current) use of anticoagulants | CPT/HCPCS: 36416; 85610 ==

== ENCOUNTER 2023-09-28 07:56 | Outpatient (CLI) | payer OTHER | END 2023-09-28 07:57 | disposition home or self-care (01) | LOC: LAB.S 07:56 | PROVIDERS: ATTEND Internal Medicine Cardiovascular Disease | DX: Z51.81 Encounter for therapeutic drug level monitoring (principal); Z79.01 Long term (current) use of anticoagulants | CPT/HCPCS: 36416; 85610 ==

== ENCOUNTER 2024-01-18 07:37 | Outpatient (CLI) | payer OTHER | END 2024-01-18 07:38 | disposition home or self-care (01) | LOC: LAB.S 07:37 | PROVIDERS: ATTEND Internal Medicine Cardiovascular Disease | DX: Z51.81 Encounter for therapeutic drug level monitoring (principal); Z79.01 Long term (current) use of anticoagulants | CPT/HCPCS: 36415; 85610 ==

== ENCOUNTER 2024-02-23 22:01 | Outpatient (CLI) | payer OTHER | END 2024-02-23 22:02 | disposition left against medical advice (07) | LOC: EMS 22:01 | DX: S01.81XA Laceration without foreign body of other part of head, initial encounter (principal); S01.111A Laceration without foreign body of right eyelid and periocular area, initial encounter; W01.0XXA Fall on same level from slipping, tripping and stumbling without subsequent striking against object, initial encounter; Y92.009 Unspecified place in unspecified non-institutional (private) residence as the place of occurrence of the external cause; Z79.01 Long term (current) use of anticoagulants; F10.90 Alcohol use, unspecified, uncomplicated ==

== ENCOUNTER 2024-02-29 07:15 | Outpatient (CLI) | payer OTHER | END 2024-02-29 07:16 | disposition home or self-care (01) | LOC: LAB.S 07:15 | PROVIDERS: ATTEND Internal Medicine Cardiovascular Disease | DX: Z51.81 Encounter for therapeutic drug level monitoring (principal); Z79.01 Long term (current) use of anticoagulants | CPT/HCPCS: 36416; 85610 ==